=== PATIENT | male | born 1960 | race Hispanic/Latino ===

== ENCOUNTER 2017-04-06 17:48 | Emergency (ER) | payer BC ==
[2017-04-06] MEDS ORDERED: HYDROcodone/ACETAMINOPHEN 1 EACH TABLET PO ONE ×2 (18:23→20:02)
--- NOTE | 2017-04-06 18:24 | ERNOTE ---
Lower Extremity HPI - Narrative Date of Service: 04/06/17 - General Lower Extremities Pain: hip: right Time Seen by Provider: 04/06/17 18:14 Source: patient, RN notes reviewed Exam Limitations: no limitations - Immun/Allergies/Home Medications Immunizations: IMMUNIZATION HX Immunizations Up to Date Yes History of Influenza Vaccine No Hx Pneumococcal Vaccination No Allergies/Adverse Reactions: Allergies Allergy/AdvReac Type Severity Reaction Status Date / Time No Known Allergies Allergy Verified 04/06/17 18:06 Home Medications: HOME MEDICATIONS Diclofenac Sodium 75 mg PO BID 04/06/17 [Last Taken Unknown] Gabapentin [Neurontin] 600 mg PO TID 04/06/17 [Last Taken Unknown] HYDROcodone/ACETAMINOPHEN [Harriman 5-325] 1 - 2 tab PO Q6H PRN #20 tab 04/06/17 [ Last Taken Unknown] Pantoprazole Sodium [Protonix] 40 mg PO DAILY 04/06/17 [Last Taken Unknown] - History of Present Illness Narrative: 56 year old male ambulatory to the ED for right hip pain after stepping in a hole. He stepped in the hole with his left foot and fell down onto his right knee. He had his hip replaced in 2005. He reports pain with weight bearing, particularly with rotation or lateral movement of the hip. He denies any other injuries. Occurred: just prior to arrival Location of Incident: other Method of Injury: Reports: fell Loss of Consciousness: Reports: no loss of consciousness Modifying Factors - (Improves): Reports: rest Modifying Factors - (Worsens): Reports: movement Associated Symptoms: Denies: unable to bear weight, snapping, popping sensation , weakness, sensory loss Other Injuries: Reports: none Review of Systems - Review of Systems Constitutional: Present: no symptoms reported EYE: Present: no symptoms reported ENT: Present: no symptoms reported Respiratory: Present: no symptoms reported Cardiology: Present: no symptoms reported Gastrointestinal/Abdominal: Present: no symptoms reported Genitourinary: Present: no symptoms reported Musculoskeletal: Present: joint pain. Absent: back pain, muscle stiffness, joint swelling Skin: Absent: lesions, lumps, change in color Neurological: Absent: weakness, numbness, tingling Endocrine: Present: no symptoms reported Hematologic/Lymphatic: Present: no symptoms reported Psych: Present: no symptoms reported - Patient's Past Medical History Patient History - Medical: Arthritis, Chronic Pain, GERD Patient History - Cardiac/Respiratory: No pertinent hx Patient History - Cancer: No Hx of Cancer Patient History - Surgical Procedures: Total Hip Replacement Patient History - Other: None - Social History Living Situations: spouse Abuse History: No History of abuse Psych History: No pertinent hx Smoking Status: Never smoker Have you smoked in the past 12 months: No Do you dip or chew tobacco: No Alcohol Use: occasionally Drug Use: none - Immunizations Immunizations Up to Date: Yes Hx Pneumococcal Vaccination: No History of Influenza Vaccine: No Physical Exam - Physical Exam General Appearance: Present: wd/wn, alert, no apparent distress Respiratory: Present: no respiratory distress, no accessory muscle use Cardiovascular/Chest: Present: normal peripheral pulses Peripheral Pulses: N=norm/S=strong/W=weak/B=bound/A=absent: Dorsalis-pedis (R): Strong, Dorsalis-pedis (L): Strong Extremity Exam: Present: normal inspection, no edema, decreased range of motion - mild, right hip, other - No deformity noted to right lower extremity Neurological Exam: Present: alert, oriented, normal mood/affect, no motor/ sensory deficits, other - Normal strength against resistance in right leg Skin Exam: Present: normal color, warm/dry ED Progress - Vital Signs Patient's Vital Signs:: I have reviewed the patient's vital signs. Vital Signs: Vital Signs 04/06/17 18:00 Temperature 36.6 C Pulse Rate 68 Respiratory 16 Rate Blood Pressure 151/88 O2 Sat by Pulse 98 Oximetry - X-Ray X-Ray #1 X-Ray: hip - Right Interpretation: Interp. by me X-ray Comments: No acute fracture or dislocation, hardware intact and appears to be in appropriate alignment, ossific fragments noted surrounding hardware but these appear old. No previous film for comparison. - Progress/Reassessment Chief Complaint: Hip Pain/Injury Progress:: Improved Departure Clinical Impression: Hip pain, acute Qualifiers: Laterality: right Qualified Code(s): M25.551 - Pain in right hip - Departure Disposition: Home Follow Up Needed Condition: Stable Instructions: Hip Pain Additional Instructions: Activity as tolerated Follow up with Dr. Barboza next week if pain is not improving Referrals: Chinmay Barboza MD [Primary Care Provider] - Prescriptions: HYDROcodone/ACETAMINOPHEN [Harriman 5-325] 1 - 2 tab PO Q6H PRN #20 tab PRN Reason: Pain
[2017-04-06] MEDS ORDERED: HYDROcodone/ACETAMINOPHEN 1 EACH TABLET ONE ×2 (18:26→20:12)
[2017-04-06 21:26] VITALS: BP 127/69
== END 2017-04-06 20:20 | disposition home or self-care (01) ==
LOC: ER 17:48
DX: M25.551 Pain in right hip (principal); X58.XXXA Exposure to other specified factors, initial encounter; M19.90 Unspecified osteoarthritis, unspecified site; K21.9 Gastro-esophageal reflux disease without esophagitis; G89.29 Other chronic pain